=== PATIENT | male | born 1960 | race African-American/Black ===

== ENCOUNTER 2024-09-05 16:43 | Emergency (ER) | payer OTHER ==
[2024-09-05 19:39] LABS: Absolute Basophils 0.1 K/uL (0-0.5); Absolute Eosinophils 0.3 K/uL (0-0.5); Absolute Lymphocytes (CBC) 1.1 K/uL (0.7-4.9); Absolute Monocytes 0.9 K/uL (0.1-1.3); Absolute Neutrophil 9.5 K/uL (1.8-8.0); Basophils % 0.6 % (0-1.3); Eosinophils % 2.4 % (0-4.4); Hematocrit 29.7 % (39.6-49.0); Hemoglobin 9.8 g/dL (13.6-17.9); Lymphocytes % 9.3 % (15.3-44.8); MCH 29.7 pg (27.0-35.0); MCHC 33.1 g/dL (32.0-36.0); MCV 89.7 fL (80-100); MPV 9.7 fL (7.6-11.3); Monocytes % 7.5 % (3.3-12.3); Neutrophils % 80.2 % (41.7-73.7); Platelets 252 thou/uL (152-406); RBC Red Blood Cell Count 3.31 M/uL (4.33-5.43); Red Cell Distribution Width 14.8 % (12.1-15.2)
[2024-09-05 19:45] LABS: Anion Gap 9.8 mEq/L (5.0-15.0); Potassium 4.8 mEq/L (3.5-5.1)
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
[2024-09-06 02:34] VITALS: BP 156/88; TEMP 98.6; O2SAT 100
== END 2024-09-05 20:09 | disposition home or self-care (01) ==
LOC: ER 16:43
DX: L03.116 Cellulitis of left lower limb (principal); L03.115 Cellulitis of right lower limb; I10 Essential (primary) hypertension; E11.9 Type 2 diabetes mellitus without complications; Z88.1 Allergy status to other antibiotic agents; Z48.00 Encounter for change or removal of nonsurgical wound dressing
CPT/HCPCS: 36415; 80048; 85025; 99283

== ENCOUNTER 2024-10-11 19:37 | Inpatient (IN) | payer OTHER ==
[2024-10-11 20:44] LABS: Absolute Basophils 0.1 K/uL (0-0.5); Absolute Eosinophils 0.3 K/uL (0-0.5); Absolute Lymphocytes (CBC) 1.4 K/uL (0.7-4.9); Absolute Monocytes 0.5 K/uL (0.1-1.3); Absolute Neutrophil 3.5 K/uL (1.8-8.0); Basophils % 0.9 % (0-1.3); Eosinophils % 4.7 % (0-4.4); Hematocrit 27.9 % (39.6-49.0); Hemoglobin 9.5 g/dL (13.6-17.9); Lymphocytes % 24.9 % (15.3-44.8); MCV 88.3 fL (80-100); MPV 9.2 fL (7.6-11.3); Monocytes % 8.7 % (3.3-12.3); Neutrophils % 60.8 % (41.7-73.7); Nucleated Red Blood Cells % 0.1 % (0-0); Platelets 190 thou/uL (152-406); RBC Red Blood Cell Count 3.16 M/uL (4.33-5.43); Red Cell Distribution Width 15.8 % (12.1-15.2)
[2024-10-11 20:51] LABS: PT Prothrombin Time 11.5 SECONDS (9.4-12.5); Protime INR 1.1
--- NOTE | 2024-10-11 21:01 | RAD REPORT ---
EXAM: Chest Single View HISTORY: CHEST PAIN COMPARISON: 05/27/2017 FINDINGS: LUNGS/PLEURA: Left pleural effusion. Diffuse prominence of the pulmonary interstitium. MEDIASTINUM: The mediastinal silhouette is within normal limits. CARDIAC: Cardiomegaly. UPPER ABDOMEN: No significant abnormality. BONES: No acute abnormality. LINES/TUBES/OTHER: N/A IMPRESSION: Findings most consistent with pulmonary edema.
[2024-10-11 21:02] LABS: AST/SGOT 13 U/L (15-37); Albumin 2.5 g/dL (3.4-5.0); Albumin/Globulin Ratio 0.5 (1.1-1.8); Alkaline Phosphatase 82 U/L (45-117); Anion Gap 8.5 mEq/L (5.0-15.0); BUN Blood Urea Nitrogen 29 mg/dL (7-18); Bicarbonate 25 mEq/L (21-32); Bilirubin Total 0.4 mg/dL (0.2-1.0); Globulin 5.1 g/dL (2.3-3.5); Glomerular Filtration Rate 17 ml/min (=/>90); Glucose Level 234 mg/dL (74-106); NT PRO-BNP 7681 pg/mL (<125); Potassium 4.5 mEq/L (3.5-5.1); Protein, Total 7.6 g/dL (6.4-8.2); Sodium Level 137 mEq/L (136-145); Troponin High Sensitivity 56.5 pg/mL (<58.9)
[2024-10-11 21:10] LABS: ALT/SGPT < 14 U/L (16-61); Bilirubin Direct < 0.2 mg/dL (0-0.2); Bilirubin Indirect, Calculated 0.2 mg/dL (0.2-0.8)
[2024-10-11 21:28] LABS: Thyroid Stimulating Hormone 1.83 uIU/mL (0.358-3.740)
[2024-10-11] MEDS ORDERED: HYDRALAZINE HCL 25 MG TABLET ONE (23:51)
[2024-10-11] MEDS ORDERED: FUROSEMIDE 40 MG/4 ML VIAL ONE (23:52)
--- NOTE | 2024-10-12 00:02 | ER ---
Nurse's Notes [facility] Name: Quique Spring Age: 64 yrs Sex: Male : 1960 Arrival Date: 10/11/2024 Time: 19:37 Bed 26 Private MD: Diagnosis: Acute on chronic combined systolic (congestive) and diastolic (congestive) heart failure;Acute pulmonary edema;Acute on chronic renal insufficiency ;Dyspnea on Exertion Presentation: 10/11 19:59 Chief complaint: Patient states: c/o sob and swelling in ankles/feet x 1 week, cough. ky1 Coronavirus screen: Vaccine status: Patient reports being unvaccinated. Ebola Screen: No symptoms or risks identified at this time. Initial Sepsis Screen: Does the patient meet any 2 criteria? No. Patient's initial sepsis screen is negative. Does the patient have a suspected source of infection? No. Patient's initial sepsis screen is negative. Risk Assessment: Do you want to hurt yourself or someone else? Patient reports no desire to harm self or others. Onset of symptoms is unknown. 19:59 Method Of Arrival: Ambulatory [facility] 19:59 Acuity: CHRISTY 3 me1 Triage Assessment: 10/12 00:36 General: Appears in no apparent distress. comfortable, Behavior is calm, cooperative, bm8 appropriate for age. Respiratory: Onset: The symptoms/episode began/occurred at an unknown time. the patient has mild shortness of breath. Respiratory: Airway is patent Respiratory effort is even, unlabored, Respiratory pattern is regular, symmetrical, Breath sounds are clear bilaterally. Historical: - Allergies: 10/11 20:01 Keflex; me1 - PMHx: 20:01 diabetes mellitus; Hypertensive disorder; chronic kidney disease (Hypertensive me1 disorder); - PSHx: 20:01 back surgery (Hypertensive disorder); me1 - Immunization history:: Adult Immunizations up to date. - Infectious Disease History:: Denies. - Social history:: Smoking status: Patient reports the use of cigarette tobacco products, smokes one-half pack cigarettes per day. - Family history:: not pertinent. Screenin:38 [facility] ED Fall Risk Assessment (Adult) History of falling in the last 3 months, bm8 including since admission No falls in past 3 months (0 pts) Confusion or Disorientation No (0 pts) Intoxicated or Sedated No (0 pts) Impaired Gait No (0 pts) Mobility Assist Device Used No (0 pt) Altered Elimination No (0 pt) Score/Fall Risk Level 0 - 2 = Low Risk Oriented to surroundings, Maintained a safe environment, Educated pt \T\ family on fall prevention, incl call for assistance when getting out of bed, Assessed \T\ reinforced patient's understanding of fall precautions, Hourly rounding (assess needs \T\ fall precautionary measures) done, Used ambulatory aids as needed (educated on \T\ assisted with), Used gait belt as appropriate. Abuse screen: Denies threats or abuse. Nutritional screening: No deficits noted. Tuberculosis screening: No symptoms or risk factors identified. Assessment: 20:38 General: Appears in no apparent distress. comfortable, Behavior is calm, cooperative, bm8 appropriate for age. Pain: Denies pain. Neuro: No deficits noted. Level of Consciousness is awake, alert, obeys commands, Oriented to person, place, time, situation, Appropriate for age. Cardiovascular: Reports shortness of breath, Denies chest pain, Heart tones S1 S2 present Patient's skin is warm and dry. bilateral edema to lower exts. worse on left side.. Rhythm is sinus rhythm. Respiratory: Reports shortness of breath Airway is patent Trachea midline Respiratory effort is even, unlabored, Respiratory pattern is regular, symmetrical, Breath sounds are diminished in right posterior middle lobe and right posterior lower lobe. GI: No signs and/or symptoms were reported involving the gastrointestinal system. : No signs and/or symptoms were reported regarding the genitourinary system. EENT: No signs and/or symptoms were reported regarding the EENT system. Derm: Wound noted dorsum of right foot Wound is healing burn wound on top of right foot. Musculoskeletal: No signs and/or symptoms reported regarding the musculoskeletal system. 23:17 Reassessment: Patient appears in no apparent distress at this time. Patient and/or bm8 family updated on plan of care and expected duration. Pain level reassessed. Patient is alert, oriented x 3, equal unlabored respirations, skin warm/dry/pink. Patient denies pain at this time. Patient states symptoms have improved. 10/12 00:33 Reassessment: Patient appears in no apparent distress at this time. Patient and/or bm8 family updated on plan of care and expected duration. Pain level reassessed. Patient is alert, oriented x 3, equal unlabored respirations, skin warm/dry/pink. Patient denies pain at this time. Patient states feeling better. Patient states symptoms have improved. Vital Signs: 10/11 19:59 BP 135 / 86; Pulse 51; Resp 18; Temp 98; Pulse Ox 99% ; Weight 90.72 kg; Height 6 ft. 3 me1 in. ; Pain 0/10; 20:38 BP 151 / 97; Pulse 98; Resp 17; Temp 98; Pulse Ox 100% ; Pain 0/10; bm8 23:17 BP 149 / 115; Pulse 98; Resp 16; Temp 98; Pulse Ox 100% ; Pain 0/10; bm8 10/12 00:33 BP 146 / 98; Pulse 101; Resp 17; Temp 98; Pulse Ox 100% ; Pain 0/10; bm8 10/13 08:12 Temp 97.6(O); cc6 10/11 19:59 Body Mass Index 25.00 (90.72 kg, 190.5 cm) me1 10/11 19:59 Pain Scale: Adult me1 20:38 Pain Scale: Adult bm8 23:17 Pain Scale: Adult bm8 10/12 00:33 Pain Scale: Adult bm8 Hoang Coma Score: 10/11 20:38 Eye Response: spontaneous(4). Motor Response: obeys commands(6). Verbal Response: bm8 oriented(5). Total: 15. 23:17 Eye Response: spontaneous(4). Motor Response: obeys commands(6). Verbal Response: bm8 oriented(5). Total: 15. 23:37 Eye Response: spontaneous(4). Motor Response: obeys commands(6). Verbal Response: sp4 oriented(5). Total: 15. 10/12 00:33 Eye Response: spontaneous(4). Motor Response: obeys commands(6). Verbal Response: bm8 oriented(5). Total: 15. ED Course: 10/11 19:38 Patient arrived in ED. ra3 20:00 Andreas Ontiveros MD is Attending Physician. sp4 20:01 Triage completed. me1 20:01 Arm band placed on Patient placed in waiting room. me1 20:10 Rajat Blanco, RN is Primary Nurse. bm8 20:30 Missed attempt(s): 20 gauge in left forearm. antecubital area. Bleeding controlled, bm8 band aid applied, catheter tip intact. 20:38 Patient has correct armband on for positive identification. Bed in low position. Call bm8 light in reach. Side rails up X 1. Client placed on continuous cardiac and pulse oximetry monitoring. NIBP monitoring applied. radiation monitor on. Pulse ox on. NIBP on. Door closed. Noise minimized. Warm blanket given. Pillow given. Verbal reassurance given. Head of bed elevated. 20:38 No provider procedures requiring assistance completed. Initial lab(s) drawn, by me, bm8 sent to lab. Inserted saline lock: 18 gauge in right upper arm, using aseptic technique. Blood collected. Patient maintains SpO2 saturation greater than 95% on room air. 20:55 XRAY Chest (1 view) In Process Unspecified. EDMS 23:57 Ling Salvador MD is Hospitalizing Provider. sp4 02 00:27 Extrem Venous W Compression [place] In Process Unspecified. EDMS 00:33 Provided Education on: Need for admission. bm8 00:33 Patient admitted, IV remains in place. bm8 Administered Medications: 10/11 23:59 Drug: Furosemide IVP 40 mg IVP once; give over 2 minutes Route: IVP; Site: right upper bm8 arm; 10/12 00:35 Follow up: Response: No adverse reaction bm8 00:00 Drug: HydrALAZINE PO 25 mg PO once Route: PO; bm8 00:35 Follow up: Response: No adverse reaction bm8 Medication: 10/11 20:38 VIS not applicable for this client. bm8 Outcome: 10/12 00:01 Decision to Hospitalize by Provider. sp4 00:33 Admitted to ER Hold. Please see [facility] for further documentation. bm8 00:33 Condition: stable 00:33 Instructed on the need for admit, Demonstrated understanding of instructions, follow-up care, 10/13 09:25 Patient left the ED. iw Signatures: Dispatcher [employer] Rody Brady, RN Andreas Dugan MD MD sp4 Estrella Morrell RN RN me1 Ruth Henriquez 3 Rajat Blanco RN RN bm8 Renate Broussard 6
--- NOTE | 2024-10-12 00:02 | EDPHYS ---
Physician Documentation [facility] Name: Quique Spring Age: 64 yrs Sex: Male : 1960 Arrival Date: 10/11/2024 Time: 19:37 Bed 26 Private MD: ED Physician Andreas Ontiveros HPI: 10/11 20:00 This 64 yrs old Black Male presents to ER via Unassigned with complaints of Breathing sp4 Difficulty - x1week. 10/12 02:41 64-year-old male with history of uncontrolled diabetes and hypertension also chronic sp4 kidney disease presents with worsening dyspnea over the past week associated with dyspnea on exertion and bilateral lower leg swelling.. Historical: - Allergies: 10/11 20:01 Keflex; me1 - PMHx: 20:01 diabetes mellitus; Hypertensive disorder; chronic kidney disease (Hypertensive me1 disorder); - PSHx: 20:01 back surgery (Hypertensive disorder); me1 - Immunization history:: Adult Immunizations up to date. - Infectious Disease History:: Denies. - Social history:: Smoking status: Patient reports the use of cigarette tobacco products, smokes one-half pack cigarettes per day. - Family history:: not pertinent. ROS: 10/12 02:41 Constitutional: Negative for fever, chills, and weight loss, positive dyspnea on sp4 exertion, positive orthopnea, positive bilateral lower leg swelling. All other systems are negative, Exam: 10/11 23:37 Constitutional: This is a well developed, well nourished patient who is awake, alert, sp4 and in no acute distress. Head/Face: Normocephalic, atraumatic. Eyes: Pupils equal round and reactive to light, extra-ocular motions intact. Lids and lashes normal. Conjunctiva and sclera are not injected. Cornea within normal limits. Periorbital areas with no swelling, redness, or edema. ENT: Nares patent. No nasal discharge, no septal abnormalities noted. Tympanic membranes are normal and external auditory canals are clear. Oropharynx with no redness, swelling, or masses, exudates, or evidence of obstruction, uvula midline. Mucous membranes moist. Neck: Trachea midline, no thyromegaly or masses palpated, and no cervical lymphadenopathy. Supple, full range of motion without nuchal rigidity, or vertebral point tenderness. Positive jugular venous distention Chest/axilla: Normal chest wall appearance and motion. Nontender with no deformity. No lesions are appreciated. Cardiovascular: Regular rate and rhythm with a normal S1 and S2. No gallops, murmurs, or rubs. Normal PMI, positive JVD, prominent pulses no pulse deficits. Respiratory: Lungs have equal breath sounds bilaterally, clear to auscultation and percussion. No rales, rhonchi or wheezes noted. No increased work of breathing, no retractions or nasal flaring. Abdomen/GI: Soft, with normal bowel sounds. No distension or tympany. No guarding or rebound. No evidence of tenderness throughout. Back: No spinal tenderness. No costovertebral tenderness. Skin: Warm, dry with normal turgor. Normal color with no rashes, no lesions, and no evidence of cellulitis. MS/ Extremity: Pulses equal, no cyanosis. Neurovascular intact. Full, normal range of motion. Neuro: Awake and alert, GCS 15, oriented to person, place, time, and situation. Cranial nerves II-XII grossly intact. Motor strength 5/5 in all extremities. Sensory grossly intact. Psych: Awake, alert, with orientation to person, place and time. Behavior, mood, and affect are within normal limits ECG was reviewed by the Attending Physician. EKG at 2014 sinus tachycardia rate 102 otherwise normal Vital Signs: 19:59 BP 135 / 86; Pulse 51; Resp 18; Temp 98; Pulse Ox 99% ; Weight 90.72 kg; Height 6 ft. 3 me1 in. ; Pain 0/10; 20:38 BP 151 / 97; Pulse 98; Resp 17; Temp 98; Pulse Ox 100% ; Pain 0/10; bm8 23:17 BP 149 / 115; Pulse 98; Resp 16; Temp 98; Pulse Ox 100% ; Pain 0/10; bm8 10/12 00:33 BP 146 / 98; Pulse 101; Resp 17; Temp 98; Pulse Ox 100% ; Pain 0/10; bm8 10/13 08:12 Temp 97.6(O); cc6 10/11 19:59 Body Mass Index 25.00 (90.72 kg, 190.5 cm) me1 10/11 19:59 Pain Scale: Adult me1 20:38 Pain Scale: Adult bm8 23:17 Pain Scale: Adult bm8 10/12 00:33 Pain Scale: Adult bm8 Hoang Coma Score: 10/11 20:38 Eye Response: spontaneous(4). Motor Response: obeys commands(6). Verbal Response: bm8 oriented(5). Total: 15. 23:17 Eye Response: spontaneous(4). Motor Response: obeys commands(6). Verbal Response: bm8 oriented(5). Total: 15. 23:37 Eye Response: spontaneous(4). Motor Response: obeys commands(6). Verbal Response: sp4 oriented(5). Total: 15. 10/12 00:33 Eye Response: spontaneous(4). Motor Response: obeys commands(6). Verbal Response: bm8 oriented(5). Total: 15. MDM: 10/11 20:00 Medical Screening Exam initiated sp4 23:37 ED course: HISTORY: CHEST PAIN COMPARISON: 05/27/2017 FINDINGS: LUNGS/PLEURA: Left sp4 pleural effusion. Diffuse prominence of the pulmonary interstitium. MEDIASTINUM: The mediastinal silhouette is within normal limits. CARDIAC: Cardiomegaly. UPPER ABDOMEN: No significant abnormality. BONES: No acute abnormality. LINES/TUBES/OTHER: N/A IMPRESSION: Findings most consistent with pulmonary edema. . 10/12 02:40 ED course: US EXTREMITYVEINS BILATERAL INDICATION: Bilateral leg swelling sp4 COMPARISON(S): None. TECHNIQUE: Grayscale and color/spectral Doppler ultrasound of the bilateral lower extremity veins. FINDINGS: There is normal flow and compressibility in the bilateral common femoral, greater saphenous, femoral, popliteal and posterior tibial veins. No intraluminal thrombus is visualized. Visualized waveforms demonstrate normal respiratory variability and augmentation. IMPRESSION: No sonographic evidence of deep venous thrombosis in the imaged bilateral lower extremities. . 02:42 Differential diagnosis: Anxiety Reaction asthma, Bronchitis CHF exacerbation, Chronic sp4 Obstructive Pulmonary Disease pneumonia, Pneumothorax. Data reviewed: vital signs, nurses notes, old medical records, lab test result(s), EKG, radiologic studies, plain films, ultrasound. ED course: Stable for admission to telemetry with cardiology consult please also consult nephrology Dr. Ndiaye . 10/11 20:16 Order name: Basic Metabolic Panel; Complete Time: 23:33 sp4 10/11 20:16 Order name: CBC with Diff; Complete Time: 23:33 sp4 10/11 20:16 Order name: LFT's; Complete Time: :33 sp4 10/11 20:16 Order name: Magnesium; Complete Time: :33 sp4 10/11 20:16 Order name: NT PRO-BNP; Complete Time: 23:33 sp4 10/11 20:16 Order name: PT-INR; Complete Time: : sp4 10/11 20:16 Order name: Troponin HS; Complete Time: 23:33 sp4 10/11 20:21 Order name: CRP; Complete Time: :33 sp4 10/11 20:21 Order name: TSH; Complete Time: :33 sp4 10/11 20:21 Order name: T4 Free; Complete Time: :33 sp4 10/11 20:21 Order name: Influenza Screen (a \T\ B); Complete Time: 23:33 sp4 10/12 01:24 Order name: UR CREAT EDMS 10/12 01:24 Order name: UR SODIUM EDMS 10/12 01:24 Order name: Urinalysis w/ reflexes EDMS 10/12 01:24 Order name: Urinalysis w/ reflexes EDMS 10/12 01:24 Order name: Urine Microalbumin/Creatinine EDMS 10/12 01:24 Order name: CBC with Automated Diff EDMS 10/12 01:24 Order name: CBC with Automated Diff EDMS 10/12 01:24 Order name: Comprehensive Metabolic Panel EDMS 10/12 01:24 Order name: Comprehensive Metabolic Panel EDMS 10/12 07:59 Order name: Glucose, Ancillary Testing EDMS 10/12 17:18 Order name: Glucose, Ancillary Testing EDMS 10/12 21:12 Order name: Glucose, Ancillary Testing EDMS 10/13 01:43 Order name: Ur Protein EDMS 10/13 04:58 Order name: Retic Count EDMS 10/13 05:44 Order name: PTH Intact EDMS 10/13 07:30 Order name: Renal Panel EDMS 10/13 07:30 Order name: Uric Acid EDMS 10/13 07:30 Order name: Creatine Phosphokinase EDMS 10/13 07:30 Order name: Transferrin Sat/Iron Binding EDMS 10/13 07:30 Order name: Ferritin EDMS 10/13 07:30 Order name: Vitamin B12 Level EDMS 10/13 08:14 Order name: Glucose, Ancillary Testing EDSC 10/11 20:16 Order name: XRAY Chest (1 view); Complete Time: 23:33 sp4 10/11 23:44 Order name: Extrem Venous W Compression [place] US sp4 10/12 01:24 Order name: Echo without Doppler (2D) EDSC 10/12 11:56 Order name: EDSC 10/11 20:16 Order name: Cardiac monitoring; Complete Time: 20:38 sp4 10/11 20:16 Order name: EKG - Nurse/Tech; Complete Time: 20:38 sp4 10/11 20:16 Order name: IV Saline Lock; Complete Time: 20:38 sp4 10/11 20:16 Order name: Labs collected and sent; Complete Time: 20:38 sp4 10/11 20:16 Order name: O2 Per Protocol; Complete Time: 20:38 sp4 10/11 20:16 Order name: O2 Sat Monitoring; Complete Time: 20:38 sp4 EC/04 20:15 Rate is 102 beats/min. Rhythm is regular, Normal Sinus Rhythm. QRS Mystic is Normal. SD sp4 interval is normal. QRS interval is normal. QT interval is normal. T waves are Inverted in leads V5, V6. No ST changes noted. Clinical impression: No evidence of ischemia. Interpreted by me. Reviewed by me. Administered Medications: 23:59 Drug: Furosemide IVP 40 mg IVP once; give over 2 minutes Route: IVP; Site: right upper 8 arm; 10/12 00:35 Follow up: Response: No adverse reaction bm8 00:00 Drug: HydrALAZINE PO 25 mg PO once Route: PO; bm8 00:35 Follow up: Response: No adverse reaction bm8 Disposition Summary: 10/12/24 00:01 Hospitalization Ordered Notes: Hospitalization Status: Inpatient Admission sp4 Provider: Ling Salvador spJuan Carlos Condition: Stable sp4 Problem: new sp4 Symptoms: have improved sp4 Bed/Room Type: Standard sp4 Location: Telemetry/MedSurg (Inpatient)(10/13/24 09:09) 6 Room Assignment: 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 EDMS EDMS 20:16 20:16 CBC+H.LAB.BRZ ordered. EDMS EDMS 20:16 20:16 HEPATIC FUNCTION+C.LAB.BRZ ordered. EDMS EDMS 20:16 20:16 MAGNESIUM+C.LAB.BRZ ordered. EDMS EDMS 20:16 20:16 PROBNP+C.LAB.BRZ ordered. EDMS EDMS 20:16 20:16 PROTIME (+INR)+COAG.LAB.BRZ ordered. EDMS EDMS 20:16 20:16 Troponin High Sensitivity+C.LAB.BRZ ordered. EDMS EDMS 20:17 20:17 Chest Single View+RAD.RAD.BRZ ordered. EDMS EDMS 20:21 20:21 Influenza Screen (A \T\ B)+BA.LAB.BRZ ordered. EDMS EDMS 10/12 00:04 00:01 Telemetry/MedSurg (Inpatient) sp4 lg3 00:04 00:01 sp4 lg3 10/13 09:09 10/12 00:04 [facility] ER HOLD lg3 bc6 10/13 09:09 10/12 00:04 ERHOLD- lg3 bc6
--- NOTE | 2024-10-12 01:11 | P.HP ---
Certification for Inpatient Patient admitted to: Inpatient With expected LOS: >2 Midnights Practitioner: I am a practitioner with admitting privileges, knowledge of patient current condition, hospital course, and medical plan of care. Services: Services provided to patient in accordance with Admission requirements found in Title 42 Section 412.3 of the Code of Federal Regulations Patient History Date of Service: 10/12/24 Reason for admission: pulmonary edema History of Present Illness: 64-year-old male with complicated medical history including chronic kidney disease, diabetes, hypertension, heart failure, peripheral vascular disease presents to the hospital with complaints of of shortness of breath for 1 week. The patient was also noted to have leg wounds that he reports he follows with cardiovascular radiologic technologist. He also reports being a previous smoker and states he quit in the last month. In the ER he was noted to have concern for pulmonary congestion. 40 mg of IV Lasix was given. Nephrology and cardiology were messaged by the ER. Chest x-ray suggestive of pulmonary edema Allergies No Known Allergies Allergy (Verified 05/13/17 12:30) Home Medications: Glipizide [Glipizide Xl] 5 mg PO BID 06/03/17 lisinopriL [Prinivil] 5 mg PO BID 06/03/17 Cefepime HCl [Maxipime] 1,000 mg IV DAILY 42 Days vial 06/05/17 Vancomycin HCl 1 gm IV DAILY #42 vial 06/05/17 - Past Medical/Surgical History Diabetic: Yes -: HTN -: DM -: Anemia -: Osteomyelitis -: Right 3rd toe and Left 1st & 2nd toe amputations -: Hx back sx - Social History Alcohol use: Yes CD- Drugs: No Caffeine use: Yes Review of Systems 10-point ROS is otherwise unremarkable Physical Examination - Physical Exam General: Alert, Oriented x3 HEENT: Atraumatic, Normocephalic Respiratory: Crackles/rales Cardiovascular: Normal S1 S2, Edema Gastrointestinal: Soft and benign, Non-distended Integumentary: Skin breakdown, Skin lesion, Other (leg ulcers) - Studies Laboratory Data (last 24 hrs) 10/11/24 10/11/24 10/11/24 20:25 20:25 20:25 WBC 5.70 Hgb 9.5 L Hct 27.9 L Plt Count 190 PT 11.5 INR 1.10 Sodium 137 Potassium 4.5 BUN 29 H Creatinine 3.89 H Glucose 234 H Magnesium 2.0 Total Bilirubin 0.4 AST 13 L ALT < 14 L Alkaline Phosphatase 82 Microbiology Data (last 24 hrs): 10/11/24 20:24 Nasopharnyx Influenza Type A Antigen Screen - Final 10/11/24 20:24 Nasopharnyx Influenza Type B Antigen Screen - Final Assessment and Plan - Problems (Diagnosis) (1) Pulmonary edema Current Visit: Yes Status: Acute (2) Renal failure (ARF), acute on chronic Current Visit: No Status: Acute Qualifiers: - Plan 64-year-old male with multiple medical problems presents with complaints of progressive shortness of breath for the last 1 week #pulmonary edema #CHF exacerbation --continue IV lasix --check ECHO --cardiology consult #acute on ckd --renal dose medications --nephrology consult --send urine studies #DM --fsbs, ssi #HTN --bp elevated, restart home medications --prn hydrazine #PVD #Leg wounds #leg swelling --may need further vascular evaluation local wound care #anemia --ddx from chronic disease, renal failure --monitor --transfuse for Hgb < 7 - Advance Directives Does patient have a Living Will: No Does patient have a Durable POA for Healthcare: No
[2024-10-12] MEDS ORDERED: D10W 125 ML IV PRN (01:18)
[2024-10-12] MEDS ORDERED: GLUCAGON 1 MG/VIAL IM PRN (01:18)
--- NOTE | 2024-10-12 02:16 | RAD REPORT ---
US EXTREMITY VEINS BILATERAL INDICATION: Bilateral leg swelling COMPARISON(S): None. TECHNIQUE: Grayscale and color/spectral Doppler ultrasound of the bilateral lower extremity veins. FINDINGS: There is normal flow and compressibility in the bilateral common femoral, greater saphenous, femoral, popliteal and posterior tibial veins. No intraluminal thrombus is visualized. Visualized waveforms demonstrate normal respiratory variability and augmentation. IMPRESSION: No sonographic evidence of deep venous thrombosis in the imaged bilateral lower extremities. Electronically signed by: Eleonora Santiago MD 10/12/2024 02:11 AM [facility] Due to temporary technical issues with the PACS/GoNet[employer]self scribe reporting system, reports are being signed by the in-house radiologist without review as a courtesy to ensure prompt reporting the interpreting radiologist is fully responsible for the content of the report. Transcribed Date/Time: 10/12/2024 2:16 AM
[2024-10-12 03:43] VITALS: BMI 25.0
[2024-10-12] MEDS: INSULIN REGULAR (HUMAN) 100 UNIT/ML SQ SCH (07:30)
[2024-10-12] MEDS ORDERED: FUROSEMIDE 40 MG/4 ML VIAL ONE (08:01)
[2024-10-12] MEDS: FUROSEMIDE 40 MG/4 ML VIAL IV SCH (09:00)
--- NOTE | 2024-10-12 11:29 | EKG ---
Test Date: 2024-10-11 Test Time: 20:15:38 Botanical Technical Officer: PARAG MEASUREMENT RESULTS: Intervals: Rate: 102 SD: 168 QRSD: 96 QT: 344 QTc: 448 Wallace: P: 71 SD: 168 QRS: 61 T: 126 INTERPRETIVE STATEMENTS: Sinus tachycardia T wave abnormality, consider lateral ischemia Abnormal ECG No previous ECG available for comparison Electronically Signed On 10-12-24 11:27:40 PEARL RESTORER by Santiago Castanon
--- NOTE | 2024-10-12 11:56 | RAD REPORT ---
EXAMINATION: US RENAL ULTRASOUND CLINICAL INDICATION: RONNELL TECHNIQUE: Real-time ultrasonography of the abdomen was performed. COMPARISON: 06/05/2017 FINDINGS: RIGHT KIDNEY: Right renal length measurement: 9.2 x 5.3 x 4.1 cm. Increased echogenicity. Benign cyst s are noted as well. LEFT KIDNEY: Left renal length measurement: 9.3 x 6.3 x 5.2 cm. Increased echogenicity. Benign cysts are present. URINARY BLADDER: Incompletely distended without gross abnormality detected. ADDITIONAL FINDINGS: None. IMPRESSION: Bilateral echogenic kidneys noted compatible with underlying medical renal disease. Benign cysts are present bilaterally. No hydronephrosis.
--- NOTE | 2024-10-12 12:04 | CON ---
Date of Consultation: 10/12/2024 Consulting Physician: ER. Reason For Consultation: Elevated BUN and creatinine, fluid management. History Of Present Illness: This is a pleasant 64-year-old gentleman with significant past medical h istory of diabetes since 1989 complicated with neuropathy and nephropathy, hypertension, hyperlipidem ia, no CAD, no arthritis, the patient is not aware about any kidney disease, even though the record s how back in 2017, creatinine of 2 and GFR of 33/40. The patient came to the hospital complaining fro m increased leg swelling and wound in the leg. The patient started having shortness of breath, found to be over volume with anasarca. For that reason, we have been consulted. The patient denied takin g any nonsteroidal. No IV contrast. The patient's DVT study was done and it was negative. Past Medical History: 1. Diabetes complicated with neuropathy and nephropathy. 2. Hypertension. 3. Hyperlipidemia. 4. Chronic kidney disease stage IIIB. Baseline creatinine 2, GFR of 40 as of 2017. 5. Osteomyelitis. Past Surgical History: Negative. Social History: Active alcohol. Active smoking. Denied drugs abuse. Review of Systems: Head and Neck: No red eye. No ear pain. GI: No nausea. No vomiting. : No polyuria. No dysuria. Has incontinence. MEDICAL RECORDS SECRETARY: Not applicable. Respiratory: Has shortness of breath. Cardiovascular: Has leg swelling. Endocrine: No polydipsia. Skin: No rash. Physical Examination: Vital Signs: When I saw the patient, blood pressure 137/102, pulse of 95, afebrile. Chest: Crackles, bilateral base. Heart: S1, S2. Systolic murmur. Abdomen: Soft, nontender. Extremities: +2 edema. Dressing on the left foot. Neurologic: Alert and oriented x3. No focality. Laboratory Data: Back in 2017, creatinine 2, GFR of 41. Hemoglobin 10.3. Upon this admission, hemo globin 9.5, WBC 5.7, platelet 190. Creatinine 4.3, GFR of 15. Today lab data; sodium 137, potassium 4.5, bicarb 25, BUN 29, creatinine 3.8, GFR of 17, calcium 8.6. The patient had serum protein elect rophoresis back in 2017, just inflammatory. BNP 7000. TSH 1.8. Urinalysis negative for infection. DVT study was negative. Chest x-ray, cardiomegaly with congestion. Current Medications: The patient is on include Lasix, hydralazine, insulin. Home medications includ ing lisinopril, vancomycin, glipizide, and cefepime. Assessment And Plan: 1. Acute kidney injury on advanced chronic kidney disease, mostly progression of the disease, nonolig uric, over volume. No respiratory symptoms. No uremic symptoms. I am going to go ahead and get kim al ultrasound given the incontinence to evaluate any obstructive uropathy and to evaluate the chronic ity of the disease. We will do PTH. We will repeat serum protein electrophoresis and we will follow up. 2. Hypertension, controlled, optimal with the presence of acute kidney injury. Discontinue lisinopri l. We will continue diuresis and we will follow up. 3. Anasarca, mostly secondary to cardiorenal syndrome. The patient is on room air. We will continue p.r.n. diuresis. Hypothyroidism ruled out. We will send for protein creatinine. We will send for echocardiogram. 4. Leg edema, possible secondary to nephrotic/secondary to osteomyelitis. We will diurese p.r.n. and we will follow up the patient. We will do the workup as above. 5. Anemia of chronic kidney disease. We will send for workup. We will repeat serum protein electrop horesis. 6. Hyponatremia, dilutional. We will diurese. We will optimize fluid status. Time spent examining the patient [id number], reviewing data, lab, and radiology, placing order, dis cussing the case with the patient, discussing the case with the steam trap man including hospitalist and nursing staff more than 75 minutes. BHAVNA Voice ID: [id number] Report ID: [id number]
[2024-10-12 17:15] LABS: Specific Gravity 1.008 (1.005-1.030); Sqamous Epithelial <5 /HPF (None Seen); Urine Bacteria <20 /HPF (<20); Urine Bilirubin NEGATIVE (Negative); Urine Blood Trace (Negative); Urine Clarity Clear (Clear); Urine Color Colorless (Yellow); Urine Culture Reflex Order NOT NEEDED; Urine Glucose 1+ (Negative); Urine Ketones NEGATIVE (Negative); Urine Microscopic Reflex YN ORDER UMIC; Urine Mucus Slight /HPF (None Seen); Urine Nitrite NEGATIVE (Negative); Urine Protein 1+ (Negative); Urine RBC <5 /HPF (None Seen); Urine Urobilinogen Normal (Normal); Urine WBC None Seen /HPF (<5)
[2024-10-12] MEDS ORDERED: HYDRALAZINE HCL 20 MG/ML VIAL ONE (17:19)
[2024-10-12] MEDS: HYDRALAZINE HCL 20 MG/ML VIAL IV PRN (17:51)
--- NOTE | 2024-10-12 19:19 | P.PN ---
Date of Service: 10/12/24 Patient seen and examined. He is complaining of shortness of breath. Patient also complaining of diarrhea. Patient provide has acute on chronic kidney disease. Nephrology input appreciated. Chest x-ray also demonstrating pulmonary edema Patient getting IV Lasix. Monitor renal function closely. Follow echocardiogram result. Aggressive blood pressure control.
[2024-10-12] MEDS ORDERED: INSULIN REGULAR (HUMAN) 100 UNIT/ML ONE (21:03)
[2024-10-13 01:43] LABS: Specific Gravity 1.009 (1.005-1.030); Sqamous Epithelial None Seen /HPF (None Seen); UR PROTEIN 172.8 mg/dL (<11.9); Urine Bacteria None Seen /HPF (<20); Urine Bilirubin NEGATIVE (Negative); Urine Blood Trace (Negative); Urine Clarity Clear (Clear); Urine Color Colorless (Yellow); Urine Culture Reflex Order NOT NEEDED; Urine Glucose 1+ (Negative); Urine Ketones NEGATIVE (Negative); Urine Microscopic Reflex YN ORDER UMIC; Urine Nitrite NEGATIVE (Negative); Urine Protein 2+ (Negative); Urine Protein/Creatinine Ratio 2.7 ratio (<0.15); Urine RBC <5 /HPF (None Seen); Urine Urobilinogen Normal (Normal); Urine WBC <5 /HPF (<5); Urine pH 6.5 (5.0-7.0)
[2024-10-13 03:06] LABS: MA/CREAT RATIO 1562.9 (< 30.0); UR MICROALBUMIN 96.9 mg/dL (< 1.9)
[2024-10-13 04:56] LABS: Absolute Eosinophils 0.3 K/uL (0-0.5); Absolute Lymphocytes (CBC) 1.4 K/uL (0.7-4.9); Absolute Monocytes 0.6 K/uL (0.1-1.3); Absolute Neutrophil 3.1 K/uL (1.8-8.0); Basophils % 0.8 % (0-1.3); Eosinophils % 5.1 % (0-4.4); Hematocrit 26.4 % (39.6-49.0); Hemoglobin 8.7 g/dL (13.6-17.9); Lymphocytes % 26.1 % (15.3-44.8); MCH 29.6 pg (27.0-35.0); MCHC 32.8 g/dL (32.0-36.0); MCV 90.3 fL (80-100); MPV 9.5 fL (7.6-11.3); Monocytes % 10.7 % (3.3-12.3); Neutrophils % 57.3 % (41.7-73.7); Nucleated Red Blood Cells % 0.2 % (0-0); Percent Reticulocyte Count 0.79 % (0.4-2.05); Platelets 200 thou/uL (152-406); RBC Red Blood Cell Count 2.92 M/uL (4.33-5.43); Red Cell Distribution Width 16.2 % (12.1-15.2)
[2024-10-13 07:10] LABS: Albumin 2.6 g/dL (3.4-5.0); Albumin/Globulin Ratio 0.6 (1.1-1.8); Alkaline Phosphatase 87 U/L (45-117); Anion Gap 7.7 mEq/L (5.0-15.0); BUN Blood Urea Nitrogen 32 mg/dL (7-18); Bicarbonate 26 mEq/L (21-32); Bilirubin Total 0.5 mg/dL (0.2-1.0); Creatine Phosphokinase 131 U/L (39-308); Ferritin 126.1 ng/mL (26-388); Globulin 4.5 g/dL (2.3-3.5); Glomerular Filtration Rate 17 ml/min (=/>90); Glucose Level 124 mg/dL (74-106); Phosphorus 3.6 mg/dL (2.5-4.9); Potassium 4.7 mEq/L (3.5-5.1); Protein, Total 7.1 g/dL (6.4-8.2); Sodium Level 137 mEq/L (136-145); Transferrin 169 mg/dL (200-360)
[2024-10-13 07:30] LABS: ALT/SGPT < 14 U/L (16-61); AST/SGOT < 10 U/L (15-37)
[2024-10-13] MEDS ORDERED: FUROSEMIDE 20 MG/ 2ML VIAL ONE (08:40)
[2024-10-13 09:50] LABS: Rheumatoid Factor NEG (NEG)
--- NOTE | 2024-10-13 11:29 | ECHO ---
HEIGHT: 6 ft 3 in WEIGHT: 200 lb 0 oz DATE OF STUDY: 10/12/[address]: Ling Salvador MD 2-DIMENSIONAL: YES M.MODE: YES DOPPLER: YES COLOR FLOW: YES TDS: PORTABLE: YES DEFINITY: BUBBLE STUDY: DIAGNOSIS: CONGESTIVE HEART FAILURE CARDIAC HISTORY: CATHERIZATION: SURGERY: PROSTHETIC VALVE: PACEMAKER: MEASUREMENTS (cm) DIASTOLIC (NORMALS) SYSTOLIC (NORMALS) IVSd 1.1 (0.6-1.2) LA Diam 4.6 (1.9-4.0) LVEF 30-35% LVIDd 6.1 (3.5-5.7) LVIDs 5.1 (2.0-3.5) %FS 16% LVPWd 1.3 (0.6-1.2) Ao Diam 3.1 (2.0-3.7) 2 DIMENSIONAL ASSESSMENT: RIGHT ATRIUM: NORMAL LEFT ATRIUM: DILATED RIGHT VENTRICLE: NORMAL LEFT VENTRICLE: MODERATELY DILATED TRICUSPID VALVE: MILD TRICUSPID REGURGITATION MITRAL VALVE: MODERATE TO SEVERE MITRAL REGURGITATION PULMONIC VALVE: NORMAL AORTIC VALVE: CALCIFIED PERICARDIAL EFFUSION: NONE AORTIC ROOT: NORMAL LEFT VENTRICULAR WALL MOTION: SEVERE GLOBAL HYPOKINESIS DOPPLER/COLOR FLOW: DIASTOLIC DYSFUNCTION COMMENTS: 1. SEVERELY REDUCED LEFT VENTRICULAR SYSTOLIC FUNCTION, EJECTION FRACTION 30-35%, SEVERE GLOBAL HYPOKINESIS 2. DIASTOLIC DYSFUNCTION 3. MODERATE TO SEVERE POSTERIORLY DIRECTED MITRAL REGURGITATION 4. MODERATE DILATED LEFT ATRIUM 5. ELEVATED FILLING PRESSURE (RIGHT ATRIAL PRESSURE GREATER THAN 20 mmHg) TECHNOLOGIST: [facility]
[2024-10-13] MEDS: CALCITROL 0.25 MCG CAP PO SCH (14:42)
--- NOTE | 2024-10-13 17:36 | P.PN ---
Subjective Date of Service: 10/13/24 Chief Complaint: pulmonary edema Patient reports feeling significantly better today. He denies shortness of breath. He is a bit tachycardic. Physical Examination - Vital Signs Temperature: 97.7 F Blood Pressure: 156/99 Pulse: 103 Respirations: 20 Pulse Ox (%): 95 Assessment And Plan - Plan Physical examination General: Alert and oriented x3, NAD, HEENT: Conjunctiva not pale, anicteric sclera Neck: Supple, no elevated JVD Heart: Heart sounds 1 and 2 normal, regular rhythm, normal rate, trace bilateral lower extremity pitting edema. Lungs: Clear to auscultation bilaterally, adequate breath sounds bilaterally, no rhonchi or crackles. Abdomen: Soft, nondistended, nontender, normal bowel sounds. Extremities: No tenderness, no deformity Skin: Normal skin turgor, venous stasis dermatitis and ulcers bilateral lower extremities. Neuro: No focal motor deficit. Normal speech. Psychiatry: Normal mood, no agitation. Plan: Pulmonary edema Acute systolic heart failure continue IV lasix Echocardiogram shows EF of 30 to 35% cardiology consult Start Coreg given tachycardia and hypertension. Acute on CKD stage IV Slight improvement in serum creatinine renal dose medications Nephrology input appreciated. Dr. Ndiaye suspect progressive chronic kidney disease Monitor renal function with diuresis. DM type II Continue insulin sliding scale. HTN Continue home medications Hydralazine as needed. PVD Venous stasis ulcers may need further vascular evaluation as outpatient local wound care Chronic anemia Likely anemia of chronic kidney disease. Monitor CBC Iron profile noted. Borderline iron deficient. Transfuse for Hgb < 7 Nephrology to follow. DVT prophylaxis: SCD Advanced directive: Full code
--- NOTE | 2024-10-13 17:50 | PN ---
Date of Progress Note: 10/13/2024 Subjective: The patient was admitted to the hospital with acute kidney injury secondary to cardioren al and advanced chronic kidney disease secondary to diabetes. The patient was started on diuresis. The patient is currently on room air, feeling much better. Physical Examination: Vital Signs: Blood pressure 148/99, pulse of 93, afebrile. Chest: Crackles bilateral. Heart: S1, S2. Regular. Abdomen: Soft, nontender. Extremities: Trace edema. Neuro: Alert. No focality, no tremor. Laboratory Data: WBC 5.4, hemoglobin 8.7. Sodium 137; potassium 4.7; bicarb 26; BUN 32; creatinine 3.7, trending down; calcium 8.6. Phosphorus 3.6. Iron saturation is 20, ferritin 126. Serum protei n electrophoresis is still pending. PTH is 310. TSH 1.8. Urinalysis is negative for infection. PC ratio 1.5. Current Medications: The patient is on include hydralazine, Lasix. Assessment And Plan: 1. Acute kidney injury on advanced chronic kidney disease secondary to cardiorenal/diabetes nephropat hy/progression of the disease. Still on the overvolume side. The patient insists to be discharged. I am going to go ahead and switch the patient to oral Lasix and we will monitor. Please get a close appointment for the patient as outpatient. 2. 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 We will start the patient on Flomax. Continue diuresis and we will monitor. 3. Secondary hyperparathyroidism. Start the patient on calcitriol. 4. Obstructive uropathy. We will start on Flomax. 5. Diabetes, as by primary. 6. Congestive heart failure with exacerbation, currently on room air. Ejection fraction of 35 with g lobal hypokinesia on an echocardiogram with diastolic dysfunction and severe mitral regurgitation. W e will continue diuresis. We will consider TIKI inhibitor, ARB as outpatient and also spironolactone if allowed. 7. Iron-deficiency anemia. We will start IV iron as outpatient. SAEID/TIFFANY Voice ID: [id number] Report ID: [id number]
[2024-10-14 05:16] VITALS: O2SAT 95
[2024-10-14 06:35] LABS: Albumin 2.3 g/dL (3.4-5.0); Anion Gap 8.8 mEq/L (5.0-15.0); Phosphorus 3.6 mg/dL (2.5-4.9); Potassium 4.8 mEq/L (3.5-5.1)
[2024-10-14] MEDS: TAMSULOSIN 0.4 MG SR CAP PO SCH (09:08)
[2024-10-14 18:32] VITALS: BP 155/97; TEMP 97.6
--- NOTE | 2024-10-14 18:34 | P.DS ---
Admission Date: 10/12/24 Discharge Date: 10/14/24 Disposition: ROUTINE DISCHARGE Discharge Condition: FAIR Reason for Admission: pulmonary edema Brief History of Present Illness: 64-year-old male with history of chronic kidney disease, diabetes, hypertension, heart failure, peripheral vascular disease presented to the hospital with complaints of of shortness of breath for 1 week. The patient was also noted leg wounds that he reports he follows with a room service waiter/waitress. He also reports being a previous smoker and states he quit in the last month. Patient was evaluated in the ED and chest x-ray showed pulmonary edema. 40 mg of IV Lasix was given. Nephrology and cardiology were contacted by the ER provider and patient admitted for further management. Hospital Course: Patient admitted to the medical floor and the following medical problems addressed: Pulmonary edema Acute systolic heart failure Echocardiogram shows EF of 30 to 35%. Baseline is unknown. Patient diuresed well with IV Lasix. Patient was seen and evaluated by cardiology Dr. Fine recommended cardiac catheterization given his newly found LV dysfunction. Patient states that he is concerned about IV contrast harming his already impaired kidney function and he will end up on dialysis. Patient seen and evaluated by nephrology Dr. Ndiaye who recommended patient proceed with cardiac catheterization since his renal function is almost close to dialysis. I discussed risk and benefit of cardiac catheterization taking into consideration his chronic kidney disease with him. Patient stated he does not want to undergo any cardiac catheterization or stent or whatsoever. He mentioned he had a broken PICC line tip in his chest which could not be removed and will therefore not undergo any procedure that involves putting a foreign body into his chest ever again. Patient overall has clinically improved, weaned off oxygen and comfortable at rest and with ambulation. He appears compensated for CHF. He was discharged with Coreg given tachycardia and hypertension. Dr. Sullivan recommend oral Lasix 40 mg daily, no TIKI inhibitor or Aldactone and follow-up in the office. CKD stage IV No significant change in serum creatinine. renal dose medications Nephrology Dr. Ndiaye suspect progressive chronic kidney disease Follow-up with Dr. tMz hemodialysis as outpatient. DM type II Managed with insulin sliding scale as outpatient. Farxiga resumed on discharge. HTN Home medications resumed. PVD Venous stasis ulcers may need further vascular evaluation as outpatient local wound care. Patient is refusing any formal angiogram. Follow-up with his PCP as outpatient for management for vascular evaluation as n cyril. Chronic anemia Likely anemia of chronic kidney disease. Monitor CBC Iron profile noted. Borderline iron deficient. Nephrology evaluated patient. Follow-up with nephrology as outpatient. Vital Signs/Physical Exam: Temp Pulse Resp BP Pulse Ox 98.1 F 101 H 16 143/100 H 96 10/14/24 12:00 10/14/24 12:00 10/14/24 12:00 10/14/24 12:00 10/14/24 12:00 General: Alert, In no apparent distress, Oriented x3 Neck: Supple, JVD not distended Respiratory: Clear to auscultation bilaterally, Normal air movement Cardiovascular: Normal S1 S2 Gastrointestinal: Soft and benign, Non-distended Integumentary: Other (Lower extremity venous stasis ulcers.) Neurological: Normal strength at 5/5 x4 extr Laboratory Data at Discharge: WBC 5.40 thou/uL (4.3-10.9) 10/13/24 04:28 Hgb 8.7 g/dL (13.6-17.9) L 10/13/24 04:28 Hct 26.4 % (39.6-49.0) L 10/13/24 04:28 Plt Count 200 thou/uL (152-406) 10/13/24 04:28 PT 11.5 SECONDS (9.4-12.5) 10/11/24 20:25 INR 1.10 10/11/24 20:25 Sodium 138 mEq/L (136-145) 10/14/24 05:18 Potassium 4.8 mEq/L (3.5-5.1) 10/14/24 05:18 BUN 39 mg/dL (7-18) H 10/14/24 05:18 Creatinine 4.06 mg/dL (0.70-1.30) H 10/14/24 05:18 Glucose 192 mg/dL (74-106) H 10/14/24 05:18 Uric Acid 7.0 mg/dL (3.5-7.2) 10/13/24 05:35 Phosphorus 3.6 mg/dL (2.5-4.9) 10/14/24 05:18 Magnesium 2.0 mg/dL (1.6-2.4) 10/11/24 20:25 Total Bilirubin 0.5 mg/dL (0.2-1.0) 10/13/24 05:35 AST < 10 U/L (15-37) L 10/13/24 05:35 ALT < 14 U/L (16-61) L 10/13/24 05:35 Alkaline Phosphatase 87 U/L (45-117) 10/13/24 05:35 Home Medications: Dapagliflozin Propanediol [Farxiga] 5 mg PO DAILY 10/12/24 Furosemide 40 mg PO DAILY 10/12/24 Hydralazine [Apresoline*] 25 mg PO BID 10/12/24 Insulin Glargine,Hum.rec.anlog [Lantus Solostar] 30 unit SQ BEDTIME 10/12/24 Insulin Lispro [Humalog Kwikpen U-100] 15 unit SQ TID 10/12/24 Mafenide Acetate [Sulfamylon] 85 mg TP DAILY 10/12/24 Calcitrol [Rocaltrol*] 0.5 mcg PO Q48H #15 cap 10/13/24 Tamsulosin [Flomax*] 0.4 mg PO DAILY #30 cap 10/14/24 carvediloL [Coreg] 3.125 mg PO BID #60 tab 10/14/24 New Medications: carvediloL [Coreg] 3.125 mg PO BID #60 tab Tamsulosin [Flomax*] 0.4 mg PO DAILY #30 cap Calcitrol [Rocaltrol*] 0.5 mcg PO Q48H #15 cap Diet: ADA Activity: Ad kristen Followup: Jersey Ndiaye MD [ACTIVE - CAN ADMIT] - 1-2 Weeks NONE,NONE [Primary Care Provider] - 1 Week Frantz Fine MD [ACTIVE - CAN ADMIT] - 1-2 Weeks Time spent managing pt's care (in minutes): 40
--- NOTE | 2024-10-14 18:46 | CON ---
Date of Consultation: 10/14/2024 Reason For Consultation: CHF. History Of Present Illness: This is a 64-year-old male with chronic kidney disease, diabetes, hypert ension, congestive heart failure, peripheral vascular disease, presented with shortness of breath and open wounds of both lower extremities. Denies having any chest pain. He is an active smoker. He w as started on Lasix and he feels better and was up eating lunch. No significant symptoms. He had pu lmonary edema on admission with significant improvement. Past Medical History: As outlined above in the HPI. Medications: Refer reconciliation sheet for detailed list. Allergies: NO KNOWN DRUG ALLERGIES. Family History: No premature coronary artery disease or cancer. Social History: Active smoker. Does not drink or use any drugs. Review of Systems: All systems reviewed, they were negative except as mentioned in HPI. Physical Examination: Vital Signs: Reviewed. Head and Neck exam: Pupils are equal react to light, intact eye movements. Positive JVD. No cervic al lymphadenopathy. Neck: Supple. Thyroid is not enlarged. Lungs: Decreased breathing sounds with faint crackles in bases. No accessory muscle use or muscle r etraction. Heart: Irregular, no extra sounds. Abdomen: Soft, nontender. Bowel sounds positive. No organomegaly. No masses or hernia. No rigidi ty or rebound. Extremities: No clubbing, cyanosis, has open wounds bilaterally with decreased pulses. Neurologic: Alert, awake, and oriented x3. No acute focal deficits appreciated. Investigations: BUN 39, creatinine is 4.06, and hemoglobin is 8.7. Assessment/recommendation: 1. Acute on chronic congestive heart failure exacerbation responded very well to Lasix. Continue cur rent management. On echo, his ejection fraction is 35%. He is a smoker. Recommended coronary angio gram, however he refused to go with any tests that uses dye due to advanced kidney failure. 2. Advanced kidney disease. Recommend Nephrology evaluation to calculate the risk from doing coronar y angiogram. We will plan to do a coronary angiogram with only 15-20 mL of contrast. I will discuss further Nephrology. I had a long discussion with him, however he is absolutely refusing at this [facility] because he has major fear to go on dialysis. However, I explained to him that he has severe shasha pheral vascular disease, it needs also peripheral angiogram and patient still refuses. 3. Low-salt diet. Encouraged him to continue diuretics and once he is euvolemic, I recommend to star t him on Toprol-XL 25 mg daily and low-dose lisinopril if the Nephrology agrees. 4. Peripheral vascular disease with open wounds. I recommend to obtain an arterial Doppler of lower extremity, venous Doppler was done and there was no DVT. Recommend to evaluate him with the arterial Doppler to look for peripheral vascular disease. 5. Hypertension. Blood pressure is elevated. Add beta maria del carmen as above and maybe low-dose lisinopri l if Nephrology agrees with that. Re-evaluate the patient once he is seen by small wind energy installer and make a plan on the coronary angiogram first and possible peripheral angiogram as well. /MODL Voice ID: [id number] Report ID: [id number]
--- NOTE | 2024-10-14 22:57 | PN ---
Subjective: No overnight event. Creatinine is stable. Continue diuretic. Objective: Vital Signs: Temperature 98.1, pulse rate 101, blood pressure 143/100. General: Awake and alert, not in distress. Neck: Supple. No elevated JVD. Heart: Regular rate rhythm. Normal S1, S2. Chest: Clear to auscultation bilaterally. No rales or wheezes. Abdomen: Soft, nontender. Extremities: Trace edema. Assessment And Plan: 1. Acute on chronic kidney disease. Currently, creatinine is stable. Possibly due to cardiorenal sy ndrome. Continue Lasix. Renally dose medication. 2. Heart failure, reduced ejection fraction. Continue diuretic. Monitor INR. Consider to switch to oral. Lasix starting for tomorrow. 3. Diabetes mellitus. Continue insulin. 4. Anemia of chronic disease. Monitor hemoglobin and hematocrit, and transfuse if hemoglobin less th an 7. PAOLO/TIFFANY Voice ID: [id number] Report ID: [id number]
[2024-10-16 13:57] LABS: Abnormal Protein Band 1 REPORT; Alpha-1-Globulins 0.4 g/dL (0.2-0.3); Alpha-2-Globulins 0.8 g/dL (0.5-0.9); Beta 1 Globulin 0.5 g/dL (0.4-0.6); Gamma Globulins 1.7 g/dL (0.8-1.7); INTERPRETATION REPORT; Total Protein 7.1 g/dL (6.1-8.1)
[2024-10-17 20:55] LABS: C-ANCA Anti-Proteinase 3 <1.0 AI (<1.0); P-ANCA Anti-Myeloperoxidase Ab <1.0 AI (<1.0)
[2024-10-18 11:46] LABS: Anti-Nuclear Antibody Screen Negative (Negative)
== END 2024-10-14 19:30 | disposition home or self-care (01) | DRG 291 ==
LOC: ER 19:37 → ERHOLD 10-12 01:18 → 4TH 10-13 09:42
PROVIDERS: ADMIT Internal Medicine; ATTEND Internal Medicine
DX: I13.0 Hypertensive heart and chronic kidney disease with heart failure and stage 1 through stage 4 chronic kidney disease, or unspecified chronic kidney disease (principal); I50.21 Acute systolic (congestive) heart failure; N17.9 Acute kidney failure, unspecified; E87.1 Hypo-osmolality and hyponatremia; N18.4 Chronic kidney disease, stage 4 (severe); N25.81 Secondary hyperparathyroidism of renal origin; E11.22 Type 2 diabetes mellitus with diabetic chronic kidney disease; E11.40 Type 2 diabetes mellitus with diabetic neuropathy, unspecified; E11.51 Type 2 diabetes mellitus with diabetic peripheral angiopathy without gangrene; D63.1 Anemia in chronic kidney disease; D50.9 Iron deficiency anemia, unspecified; E78.5 Hyperlipidemia, unspecified; I87.2 Venous insufficiency (chronic) (peripheral); I34.0 Nonrheumatic mitral (valve) insufficiency; N13.9 Obstructive and reflux uropathy, unspecified; I25.10 Atherosclerotic heart disease of native coronary artery without angina pectoris; F17.210 Nicotine dependence, cigarettes, uncomplicated; R00.0 Tachycardia, unspecified; Z88.8 Allergy status to other drugs, medicaments and biological substances; Z79.84 Long term (current) use of oral hypoglycemic drugs; Z79.899 Other long term (current) drug therapy; Z89.422 Acquired absence of other left toe(s); Z89.421 Acquired absence of other right toe(s)
CPT/HCPCS: 36415; 71045; 76770; 80048; 80053; 80069; 80076; 81001; 82043; 82550; 82570; 82607; 82728; 82947; 83520; 83540; 83735; 83880; 83970; 84156; 84165; 84300; 84439; 84443; 84466; 84484; 84550; 85025; 85044; 85610; 86021; 86038; 86140; 86430; 86803; 87804; 93005; 93306; 93970; 96374; 99285; J0360; J1940